=== PATIENT | male | born 1950 | race Caucasian/White ===

== ENCOUNTER 2017-05-01 12:24 | Day surgery (SDC) | payer MEDICARE, OTHER ==
[~2017-05-01] VITALS: Ht 165.1 cm; Wt 51.0 kg
[~2017-05-01 12:24] MED LIST: ASACOL; BUSPIRONE; MELOXICAM; NEXIUM
[2017-05-01] MEDS ORDERED: APRISO (13:31)
[2017-05-01] MEDS ORDERED: DEXILANT (13:31)
[2017-05-01] MEDS ORDERED: LIDOCAINE 2% (SDV) 5 ML INJ ONE (13:59)
[2017-05-01] MEDS ORDERED: PROPOFOL 60 ML ONE (13:59)
--- NOTE | 2017-05-01 14:48 | OPPN ---
Date/Time of Note Date/Time of Note DATE: 05/01/17 TIME: 14:45 Proc Note GI Procedure Date 05/01/17 Pre-procedure Diagnosis * Dyspepsia Post-procedure Diagnosis Assessment: * Moderate distal esophagitis * Multiple shallow antral gastric ulcerations. Biopsies obtained. Rule out H. pylori infection. Plan: * Omeprazole 40 mg daily * Review pathology * Follow-up EGD in 8 weeks Procedure Performed: Endoscopy (With biopsies) Surgeon see signature line District Claims Manager none Anesthesia Type: MAC Anesthesiologist: DIANNE MACEDO MD EBL none Transfusion required none Biopsy 1: Gastric body and antrum Grafts/Implants none Complication(s) none Pt Condition post procedure: stable Disposition: home Indications: upper abd Sx despite ther Procedure Description After informed consent, with the patient/relatives understanding the procedure, its indications, potential risks and complications, including but not limited to : allergic reaction, bleeding, perforation or infection, and after all pertinent questions were answered to the patients satisfaction, the patient/ relatives signed witnessed informed consent. Following this, premedication was administered slowly IV push under careful cardiovascular and respiratory monitoring with pulse oximetry, automatic blood pressure, and alarm security or surveillance monitor. Once the sedative effect was achieved the patient was place in the left lateral decubitus, the panendoscope was introduced and advanced under visual control. Careful examination of the upper gastrointestinal tract, both on insertion as well as withdrawal of the instrument disclosing the following findings: ESOPHAGUS: the mucosa of the entire esophagus was carefully examined and showed the following findings: There is mild to moderate erythema of the mucosa at the e.g. junction. Otherwise the mucosa appears within normal limits. There is no evidence of varices, neoplasm, or stricture. No Hiatal Hernia identified. STOMACH: Upon entrance to the stomach air was insufflated, the gastric otero distended normally. The mucosa of the fundus, body and antrum of the stomach was carefully examined both head-on and on retroflexion, and showed the following findings: There is significant erythema and edema and multiple shallow ulcerations in the antrum of the stomach. Benign endoscopic appearance. No stigmata of recent bleeding. Biopsies were obtained to rule out H. pylori infection. Otherwise the mucosa appears within normal limits with no abnormalities. There is no evidence of neoplasm. PYLORUS: The pylorus was carefully examined and showed the following findings: the pylorus appears patent and within normal limits, with no evidence of gastric outlet obstruction. DUODENUM: The duodenal mucosa was carefully examined in the duodenal bulb as well as the second portion of the duodenum and showed the following findings: the mucosa appears unremarkable with no evidence of duodenitis, ulcer or neoplasm. Copies To: CC: KRYSTIN RODRIGUEZ MD, MORDO MD May 01, 2017 14:48
--- NOTE | 2017-05-01 14:53 | OPPN ---
Date/Time of Note Date/Time of Note DATE: 05/01/17 TIME: 14:48 Proc Note GI Procedure Date 05/01/17 Pre-procedure Diagnosis * History ulcerative colitis Post-procedure Diagnosis : * Moderately active ulcerative proctitis to approximately 20 cm. * Otherwise normal colonic mucosa to cecum. * Biopsy change from all segments of the colon ie ascending, transverse, descending, sigmoid and rectum * Moderate-sized internal hemorrhoids. Plan: * Continue mesalamine at local enema * Review pathology * Follow-up as previously scheduled Surgeon see signature line Diabetes Education Coordinator none Anesthesia Type: MAC Anesthesiologist: DIANNE MACEDO MD EBL none Transfusion required none Biopsy 1: Ascending colon Biopsy 2: Transverse colon Biopsy 3: Descending: Additional Biopsy: Sigmoid colon, rectum Grafts/Implants none Complication(s) none Pt Condition post procedure: stable Disposition: home Indications: inflammatory bowel diseas Procedure Description After informed consent, with the patient/relatives understanding the procedure, its indications and potential risks and complications, including but not limited to: Allergic reaction, bleeding, perforation, infection, and after all pertinent questions were answered to the patient's satisfaction, the patient/ relatives signed the witnessed informed consent. Following this, premedication was administered slowly IV push under careful cardiovascular and respiratory monitoring with pulse OXIMETRY, automatic blood pressure, and case monitor. Once the sedative effect was achieved, the patient was placed in the left lateral decubitus position, digital rectal examination was performed. The colonoscope was then introduced and advanced under visual control throughout all segments of the colon including: the rectum, sigmoid, descending colon, splenic flexure, transverse colon, hepatic flexure, ascending colon and finally reaching the cecum which was clearly identified by transillumination, finger indentation and the ileocecal valve. Careful examination of the mucosa of the lower gastrointestinal tract both on insertion as well as withdrawal of the instrument disclosed the following findings: PREPARATION QUALITY: [Adequate], RECTAL EXAM: The anorectal area was visualized examined and digital rectal examination performed with the following findings: No evidence of perirectal disease, no masses. COLONIC MUCOSA: The mucosa of all segments of the colon was carefully examined and showed the following findings: There is erythema edema and superficial ulceration of the mucosa extending to approximately 20 cm. Beyond this point the mucosa appears entirely unremarkable throughout the remainder of the colon. The ileocecal valve and appendiceal orifice appeared unremarkable. The terminal ileum appears unremarkable as well. Biopsies were obtained from the ascending, transverse, descending, sigmoid colon and rectum. Otherwise the examined mucosa appears within normal limits. There is no evidence of diverticular formation, polyps or other neoplasms, vascular malformation, or any other abnormality. Moderate- sized internal hemorrhoids present The instrument was then withdrawn, the patient tolerated the procedure well and was transferred out of the Endoscopy Suite awake and in good condition to continue recovery under observation. Copies To: CC: KRYSTIN RODRIGUEZ MD, MORDO MD May 01, 2017 14:53
[2017-05-01 15:10] VITALS: BP 134/83; RESP 14
== END 2017-05-01 15:53 | disposition home or self-care (01) ==
LOC: GIL 12:24
PROVIDERS: ATTEND Internal Medicine Gastroenterology
DX: K51.90 Ulcerative colitis, unspecified, without complications (principal); K64.8 Other hemorrhoids; K22.8 Other specified diseases of esophagus
CPT/HCPCS: 88305; 88312

== ENCOUNTER 2017-11-15 12:48 | Day surgery (SDC) | END 2017-11-15 19:11 | disposition home or self-care (01) ==

== ENCOUNTER 2018-02-22 12:06 | Day surgery (SDC) | END 2018-02-22 16:47 | disposition home or self-care (01) ==

== ENCOUNTER 2018-05-12 13:12 | Emergency (ER) | END 2018-05-12 16:25 | disposition home or self-care (01) ==

== ENCOUNTER 2019-01-23 12:12 | Emergency (ER) | payer MEDICARE ==
[~2019-01-23] VITALS: Ht 162.6 cm; Wt 52.0 kg
[~2019-01-23 12:12] MED LIST changes: -ASACOL; -BUSPIRONE; +CIPR500T4 PO; +CLOT30CR24 TOP; +DEXL30CA2 PO; -MELOXICAM; +MESA0.372 PO; -NEXIUM
[2019-01-23 12:19] VITALS: Ht 162.6 cm; Wt 52.0 kg
[2019-01-23] MEDS ORDERED: SOD CHLORIDE 0.9% 500 ML IV STA (14:37)
--- NOTE | 2019-01-23 16:24 | ERD ---
ER Documentation Chief Complaint Chief Complaint ABDOMINAL PAIN AND DIARRHEA X 4 DAYS HPI This is a 68-year-old male who presents the emergency room with approximately 4 days of symptoms of abdominal cramping and looser stools. No recent travel sick contacts or antibiotics. He has only mild pain to the abdomen that is consistent with cramping. He denies any fevers or chills. No chest pain or shortness of breath. No nausea or vomiting. ROS All systems reviewed and are negative except as per history of present illness. Medications Home Meds Active Scripts Clotrimazole* (Clotrimazole* AF) 1% - 30 Gm Cream.gm., 1 APPLIC TOP BID for 7 Days, TUB Prov:SAMUEL RAINEY PA-C 05/12/18 Ciprofloxacin Hcl* (Ciprofloxacin Hcl*) 500 Mg Tablet, 500 MG PO BID for 7 Days, TAB Prov:SAMUEL RAINEY PA-C 05/12/18 Reported Medications Mesalamine* (Apriso*) 0.375 Gm Cap.sr.24h, 0.375 GM PO DAILY, CAP 02/22/18 Dexlansoprazole (Dexilant) 30 Mg Cap.dr.mp, 30 MG PO DAILY, #30 CAP 02/22/18 Allergies Allergies: Coded Allergies: No Known Drug Allergies (Verified Allergy, Unknown, 05/12/18) PMhx/Soc History of Surgery: Yes (r tkr) Anesthesia Reaction: No Hx Neurological Disorder: No Hx Respiratory Disorders: No Hx Cardiac Disorders: No Hx Psychiatric Problems: No Hx Miscellaneous Medical Probl: Yes (gastritis) Hx Alcohol Use: Yes (small amount) Hx Substance Use: No Hx Tobacco Use: No Smoking Status: Former smoker FmHx Family History: No diabetes Physical Exam Vitals Vital Signs Date Temp Pulse Resp B/P (MAP) Pulse Ox O2 O2 Flow FiO2 Time Delivery Rate 01/23/19 97.1 57 16 109/71 100 Room Air 14:52 (84) 01/23/19 96.6 68 19 109/67 97 12:19 (81) Physical Exam General: Well developed, well nourished, no acute distress Head: Normocephalic, atraumatic. Eyes: Pupils equally reactive, EOM intact ENT: Moist mucous membranes Neck: Supple, no lymphadenopathy Respiratory: Lungs clear bilaterally, no distress Cardiovascular: RRR, no murmurs, rubs, or gallops Abdominal: Soft, non-tender, non-distended, no peritoneal signs : Deferred MSK: No edema, no unilateral swelling, 5/5 strength Neurologic: Alert and oriented, moving all extremities, normal speech, no focal weakness, no cerebellar signs Skin: No rash Psych: Normal mood Result Diagram: 01/23/19 1448 01/23/19 1448 Results 24 hrs Laboratory Tests Test 01/23/19 14:48 White Blood Count 6.2 10^3/ul Red Blood Count 4.94 10^6/ul Hemoglobin 12.5 g/dl Hematocrit 39.5 % Mean Corpuscular Volume 80.0 fl Mean Corpuscular Hemoglobin 25.3 pg Mean Corpuscular Hemoglobin Concent 31.6 g/dl Red Cell Distribution Width 16.8 % Platelet Count 383 10^3/UL Mean Platelet Volume 8.9 fl Immature Granulocytes % 0.800 % Neutrophils % 59.2 % Lymphocytes % 25.1 % Monocytes % 9.0 % Eosinophils % 5.3 % Basophils % 0.6 % Nucleated Red Blood Cells % 0.0 /100WBC Immature Granulocytes # 0.050 10^3/ul Neutrophils # 3.7 10^3/ul Lymphocytes # 1.6 10^3/ul Monocytes # 0.6 10^3/ul Eosinophils # 0.3 10^3/ul Basophils # 0.0 10^3/ul Nucleated Red Blood Cells # 0.0 10^3/ul Sodium Level 139 mmol/L Potassium Level 3.5 mmol/L Chloride Level 97 mmol/L Carbon Dioxide Level 34 mmol/L Anion Gap 8 Blood Urea Nitrogen 16 mg/dl Creatinine 0.77 mg/dl Est Glomerular Filtrat Rate mL/min > 60 mL/min Glucose Level 142 mg/dl Calcium Level 8.8 mg/dl Total Bilirubin 0.3 mg/dl Direct Bilirubin 0.00 mg/dl Indirect Bilirubin 0.3 mg/dl Aspartate Amino Transf (AST/SGOT) 29 IU/L Alanine Aminotransferase (ALT/SGPT) 22 IU/L Alkaline Phosphatase 74 IU/L Total Protein 7.7 g/dl Albumin 3.8 g/dl Globulin 3.90 g/dl Albumin/Globulin Ratio 0.97 Lipase 117 U/L Current Medications Medications Dose Sig/Yasmani Start Time Status Last (Trade) Ordered Route PRN Stop Time Admin Dose Reason Admin Sodium 500 ml @ Q1H STAT 01/23/19 DC 01/23/19 Chloride 500 mls/hr IV 14:37 14:46 01/23/19 15:36 Procedures/MDM EKG, MONITORS, & DIAGNOSTIC IMAGING: CT a/p IMPRESSION: 1. No evidence of bowel obstruction. Stool filled loops of large bowel suggestive of constipation. The appendix is within normal limits. 2. No gross renal/ureteric calculi. No evidence of obstructive uropathy. 3. Fat-containing bilateral inguinal hernias. RPTAT: AAPP LAB INTERPRETATION: I reviewed the laboratory testing and it shows no evidence of acute process MEDICAL DECISION MAKING: Patient has nonspecific abdominal pain and looser stools likely consistent with possible viral process. He is a grossly benign abdominal exam but given his age he is at high risk for possible acute interabdominal process. Laboratory testing and CT imaging will be appropriate. Low concern for appendicitis, bowel obstruction or infectious etiology. ER COURSE: * Patient's laboratory testing and diagnostic imaging are unrevealing. His looser stools are not consistent with constipation. I do not believe a bowel regimen would be appropriate at this time. * Reassurance was provided. He is close primary care follow-up. Return precautions were discussed and understood. Symptom control with [id number] nter medications most appropriate. CONSULTATION: None DISPOSITION PLAN: The patient does not have an identifiable emergent medical condition that warrants inpatient hospitalization at this time. The patient is deemed safe for discharge with outpatient follow-up. We discussed follow up with the patient's primary care doctor within 24 to 48 hours as needed. We also discussed return to the emergency room for worsening symptoms or worsening condition. Outpatient referral: None required Discharge Medications: None required During the patient's encounter translation services were utilized Language: Lao Source: In person Departure Diagnosis: Primary Impression: Abdominal pain Abdominal location: generalized Qualified Codes: R10.84 - Generalized abdominal pain Additional Impression: Diarrhea Diarrhea type: unspecified type Qualified Codes: R19.7 - Diarrhea, unspecified Condition: PAULINA Pollack MD Jan 23, 2019 16:24
[2019-01-23 16:52] VITALS: BP 105/72; PULSE 52; RESP 14
== END 2019-01-23 16:54 | disposition home or self-care (01) ==
LOC: E/R 12:12
DX: R10.84 Generalized abdominal pain (principal)
CPT/HCPCS: 36415; 74176; 80053; 83690; 85025; 96360; 99285; J7040